=== PATIENT | female | born 1965 | race Caucasian/White ===

== ENCOUNTER 2017-06-26 14:54 | Emergency (ER) | payer OTHER ==
[~2017-06-26] VITALS: Ht 165.1 cm; Wt 86.0 kg
[~2017-06-26 14:54] MED LIST: MECL25CH PO; MOBI7.5T PO
[2017-06-26 14:56] VITALS: BP 134/90; PULSE 80; RESP 12; TEMP 98.5; O2SAT 99
[2017-06-26 16:14] VITALS: BP 136/86; PULSE 72; RESP 16; O2SAT 98
[2017-06-26 16:54] LABS: AUTOMATED NEUTROPHIL # 3.6 TH/MM3 (1.8-7.7); BASOPHIL % 0.6 % (0.0-2.0); EOSINOPHIL # 0.2 TH/MM3 (0-0.4); EOSINOPHIL % 3.1 % (0.0-4.0); HEMATOCRIT 35.9 % (35.0-46.0); HEMOGLOBIN 12.7 GM/DL (11.6-15.3); LYMPHOCYTE # 2.5 TH/MM3 (1.0-4.8); MEAN CELL VOLUME 85.8 FL (80.0-100.0); MEAN CORPUSCULAR HEMOGLOBIN 30.3 PG (27.0-34.0); MEAN CORPUSCULAR HGB CONC 35.3 % (32.0-36.0); MEAN PLATELET VOLUME 9.1 FL (7.0-11.0); MONO % 7.4 % (0.0-8.0); MONOCYTE # 0.5 TH/MM3 (0-0.9); NEUT % 52.9 % (16.0-70.0); PLATELET COUNT 219 TH/MM3 (150-450); RED BLOOD COUNT 4.18 MIL/MM3 (4.00-5.30); RED CELL DISTRIBUTION WIDTH 13.1 % (11.6-17.2); WHITE BLOOD COUNT 6.9 TH/MM3 (4.0-11.0)
--- NOTE | 2017-06-26 16:54 | RADRPT ---
EXAM DATE/TIME: 06/26/2017 16:41 [facility] COMPARISON: No previous studies available for comparison. INDICATIONS : CVA, Dizziness, left eye problems, diaphoresis. RADIATION DOSE: 32.53 CTDIvol (mGy) MEDICAL HISTORY : None SURGICAL HISTORY : None. ENCOUNTER: Initial ACUITY: 2 days PAIN SCALE: 0/10 LOCATION: cranial TECHNIQUE: Multiple contiguous axial images were obtained of the head. Using automated exposure control and adjustment of the mA and/or kV according to patient size, radiation dose was kept as low as reasonably achievable to obtain optimal diagnostic quality images. DICOM format image data is av ailable electronically for review and comparison. FINDINGS: CEREBRUM: The ventricles are normal for age. No evidence of midline shift, mass lesion, hemorrha ge or acute infarction. No extra-axial fluid collections are seen. POSTERIOR FOSSA: The cerebellum and brainstem are intact. The 4th ventricle is midline. The cer ebellopontine angle is unremarkable. EXTRACRANIAL: The visualized portion of the orbits is intact. SKULL: The calvaria is intact. No evidence of skull fracture. CONCLUSION: Negative for central pulmonary emboli Orbits unremarkable Miguel Valadez MD FACR on June 26, 2017 at 16:51 Board Certified Radiologist. This report was verified electronically.
--- NOTE | 2017-06-26 17:01 | PD ---
Physical Exam Narrative I, Dr. Burgess, have reviewed the advance practice practitioner's documentation and am in agreement, met with the patient face to face, made the diagnosis, and the medical decision making was done by me. *My assessment and Findings: Patient is a 52 year old female who comes in after an episode of dizziness and peripheral vision loss. Currently, she says her symptoms have resolved. Exam shows decreased peripheral vision on the left, no other neurologic abnormalities. Data Data Last Documented VS Vital Signs Date Time Temp Pulse Resp B/P (MAP) Pulse Ox O2 Delivery O2 Flow Rate FiO2 06/26/17 21:50 06/26/17 18:25 69 17 99 Room Air 06/26/17 14:56 98.5 Orders Orders Electrocardiogram (06/26/17 16:19) Prothrombin Time / Inr (Pt) (06/26/17 16:19) Act Partial Throm Time (Ptt) (06/26/17 16:19) Complete Blood Count With Diff (06/26/17 16:19) Basic Metabolic Panel (Bmp) (06/26/17 16:19) Drug Screen, Random Urine (06/26/17 16:19) Troponin I (06/26/17 16:19) Urinalysis - C+S If Indicated (06/26/17 16:19) Ct Brain W/O Iv Contrast(Rout) (06/26/17 16:19) Ecg Monitoring (06/26/17 16:19) Iv Access Insert/Monitor (06/26/17 16:19) Blood Glucose (06/26/17 16:19) Mri Brain W/O Contrast (06/26/17 16:59) Sodium Chlor 0.9% 1000 Ml Inj (Ns 1000 M (06/26/17 19:30) Ketorolac Inj (Toradol Inj) (06/26/17 19:30) Diphenhydramine Inj (Benadryl Inj) (06/26/17 19:30) Prochlorperazine Inj (Compazine Inj) (06/26/17 19:30) Ed Discharge Order (06/26/17 20:46) Labs Laboratory Tests Test 06/26/17 16:20 06/26/17 16:35 White Blood Count 6.9 TH/MM3 Red Blood Count 4.18 MIL/MM3 Hemoglobin 12.7 GM/DL Hematocrit 35.9 % Mean Corpuscular Volume 85.8 FL Mean Corpuscular Hemoglobin 30.3 PG Mean Corpuscular Hemoglobin Concent 35.3 % Red Cell Distribution Width 13.1 % Platelet Count 219 TH/MM3 Mean Platelet Volume 9.1 FL Neutrophils (%) (Auto) 52.9 % Lymphocytes (%) (Auto) 36.0 % Monocytes (%) (Auto) 7.4 % Eosinophils (%) (Auto) 3.1 % Basophils (%) (Auto) 0.6 % Neutrophils # (Auto) 3.6 TH/MM3 Lymphocytes # (Auto) 2.5 TH/MM3 Monocytes # (Auto) 0.5 TH/MM3 Eosinophils # (Auto) 0.2 TH/MM3 Basophils # (Auto) 0.0 TH/MM3 CBC Comment DIFF FINAL Differential Comment Prothrombin Time 10.7 SEC Prothromb Time International Ratio 1.1 RATIO Activated Partial Thromboplast Time 36.9 SEC Blood Urea Nitrogen 16 MG/DL Creatinine 0.76 MG/DL Random Glucose 67 MG/DL Calcium Level 8.7 MG/DL Sodium Level 142 MEQ/L Potassium Level 3.9 MEQ/L Chloride Level 110 MEQ/L Carbon Dioxide Level 27.0 MEQ/L Anion Gap 5 MEQ/L Estimat Glomerular Filtration Rate 80 ML/MIN Troponin I 0.02 NG/ML Urine Color YELLOW Urine Turbidity CLEAR Urine pH 6.0 Urine Specific [place] 1.031 Urine Protein TRACE mg/dL Urine Glucose (UA) NEG mg/dL Urine Ketones NEG mg/dL Urine Occult Blood NEG Urine Nitrite NEG Urine Bilirubin NEG Urine Urobilinogen 2.0 MG/DL Urine Leukocyte Esterase NEG Urine WBC 1 /hpf Urine Mucus FEW /lpf Microscopic Urinalysis Comment CATH-CULT NOT IND Urine Opiates Screen NEG Urine Barbiturates Screen NEG Urine Amphetamines Screen NEG Urine Benzodiazepines Screen NEG Urine Cocaine Screen NEG Urine Cannabinoids Screen NEG MDM Supervised Visit with [facility]: Yes Narrative Course CT head performed shows no acute abnormalities. MRI brain shows no acute abnormalities. While in the ED, patient began to have a headache. She has history of migraines. I believe her symptoms may be related to a migraine coming on. Given pain medication. Discharged home to follow up with neurology. Diagnosis Primary Impression: Headache Qualified Codes: R51 - Headache Scripts No Active Prescriptions or Reported Meds Patricia Burgess MD Jun 26, 2017 17:01
[2017-06-26 17:03] LABS: INTERNATIONAL NORMALIZED RATIO 1.1 RATIO; PROTHROMBIN TIME - PATIENT 10.7 SEC (9.8-11.6)
[2017-06-26 17:10] LABS: BILIRUBIN, URINE NEG (NEG); BLOOD, URINE NEG (NEG); GLUCOSE,URINE NEG (NEG); KETONE, URINE NEG (NEG); MUCUS URINE FEW /lpf (OCC); NITRITE,URINE NEG (NEG); URINE COLOR YELLOW (YELLW/STRAW); URINE LEUKOCYTE ESTERASE NEG (NEG)
[2017-06-26 17:20] LABS: CALCIUM 8.7 MG/DL (8.5-10.1); CREATININE 0.76 MG/DL (0.50-1.00)
[2017-06-26 17:25] LABS: TROPONIN I 0.02 NG/ML (0.02-0.05)
--- NOTE | 2017-06-26 17:25 | PD ---
HPI Chief Complaint: Dizziness Time Seen by Provider: 16:07 Travel History International Travel<30 days: No Contact w/Intl Traveler<30days: No Traveled to known affect area: No History of Present Illness HPI 52 year old female presents to the emergency department for evaluation of sudden onset dizziness and peripheral vision loss with the left eye. Patient states the symptoms started approximately two hours ago. She reports the dizziness felt like the room was spinning and she had to hold on to her desk. She reports the dizziness has completely resolved at this time and the episode only last approximately 2 mins. She reports that the peripheral vision loss in her left eye is resolved, however on physical exam it was determined she still has peripheral vision loss. Central vision in bilateral eyes intact. Right peripheral vision intact. She denies any headache, ear pain, nausea or vomiting. She denies any chest pain or shortness of breath, recent fevers or chills. There are no focal neurological deficits at this time. Patient has no major medical history and is otherwise healthy. No daily medications. PFSH Past Medical History Medical History: Denies Significant Hx Diminished Hearing: No Influenza Vaccination: No ?: Not Menopausal: Yes Social History Alcohol Use: Yes (wine occ) Tobacco Use: No Substance Use: No Allergies-Medications (Allergen,Severity, Reaction): Coded Allergies: No Known Allergies (Unverified Adverse Reaction, Unknown, 06/26/17) Reported Meds & Prescriptions Reported Meds & Active Scripts Active No Active Prescriptions or Reported Medications Review of Systems Except as stated in HPI: all other systems reviewed are Neg Physical Exam Narrative GENERAL: Well-nourished, well-developed 52-year-old female in no acute distress. Nontoxic appearing. SKIN: Focused skin assessment warm/dry. HEAD: Atraumatic. Normocephalic. EYES: Pupils equal and round. No scleral icterus. No injection or drainage. Left peripheral vision loss. Bilateral central vision intact. Right peripheral vision intact. VISUAL ACUITY: Left eye: 20/25, Right eye: 20/10 ENT: No nasal bleeding or discharge. Mucous membranes pink and moist. NECK: Trachea midline. No JVD. CARDIOVASCULAR: Regular rate and rhythm. No murmur appreciated. RESPIRATORY: No accessory muscle use. Clear to auscultation. Breath sounds equal bilaterally. GASTROINTESTINAL: Abdomen soft, non-tender, nondistended. Hepatic and splenic margins not palpable. MUSCULOSKELETAL: No obvious deformities. No clubbing. No cyanosis. No edema. NEUROLOGICAL: Awake and alert. No obvious cranial nerve deficits. Motor grossly within normal limits. Normal speech. PSYCHIATRIC: Appropriate mood and affect; insight and judgment normal. Data Data Last Documented VS Vital Signs Date Time Temp Pulse Resp B/P (MAP) Pulse Ox O2 Delivery O2 Flow Rate FiO2 06/26/17 18:25 69 17 152/77 (102) 99 Room Air 06/26/17 14:56 98.5 Orders Orders Electrocardiogram (06/26/17 16:19) Prothrombin Time / Inr (Pt) (06/26/17 16:19) Act Partial Throm Time (Ptt) (06/26/17 16:19) Complete Blood Count With Diff (06/26/17 16:19) Basic Metabolic Panel (Bmp) (06/26/17 16:19) Drug Screen, Random Urine (06/26/17 16:19) Troponin I (06/26/17 16:19) Urinalysis - C+S If Indicated (06/26/17 16:19) Ct Brain W/O Iv Contrast(Rout) (06/26/17 16:19) Ecg Monitoring (06/26/17 16:19) Iv Access Insert/Monitor (06/26/17 16:19) Blood Glucose (06/26/17 16:19) Mri Brain W/O Contrast (06/26/17 16:59) Sodium Chlor 0.9% 1000 Ml Inj (Ns 1000 M (06/26/17 19:30) Ketorolac Inj (Toradol Inj) (06/26/17 19:30) Diphenhydramine Inj (Benadryl Inj) (06/26/17 19:30) Prochlorperazine Inj (Compazine Inj) (06/26/17 19:30) Ed Discharge Order (06/26/17 20:46) Labs Laboratory Tests Test 06/26/17 16:20 06/26/17 16:35 White Blood Count 6.9 TH/MM3 Red Blood Count 4.18 MIL/MM3 Hemoglobin 12.7 GM/DL Hematocrit 35.9 % Mean Corpuscular Volume 85.8 FL Mean Corpuscular Hemoglobin 30.3 PG Mean Corpuscular Hemoglobin Concent 35.3 % Red Cell Distribution Width 13.1 % Platelet Count 219 TH/MM3 Mean Platelet Volume 9.1 FL Neutrophils (%) (Auto) 52.9 % Lymphocytes (%) (Auto) 36.0 % Monocytes (%) (Auto) 7.4 % Eosinophils (%) (Auto) 3.1 % Basophils (%) (Auto) 0.6 % Neutrophils # (Auto) 3.6 TH/MM3 Lymphocytes # (Auto) 2.5 TH/MM3 Monocytes # (Auto) 0.5 TH/MM3 Eosinophils # (Auto) 0.2 TH/MM3 Basophils # (Auto) 0.0 TH/MM3 CBC Comment DIFF FINAL Differential Comment Prothrombin Time 10.7 SEC Prothromb Time International Ratio 1.1 RATIO Activated Partial Thromboplast Time 36.9 SEC Blood Urea Nitrogen 16 MG/DL Creatinine 0.76 MG/DL Random Glucose 67 MG/DL Calcium Level 8.7 MG/DL Sodium Level 142 MEQ/L Potassium Level 3.9 MEQ/L Chloride Level 110 MEQ/L Carbon Dioxide Level 27.0 MEQ/L Anion Gap 5 MEQ/L Estimat Glomerular Filtration Rate 80 ML/MIN Troponin I 0.02 NG/ML Urine Color YELLOW Urine Turbidity CLEAR Urine pH 6.0 Urine Specific [place] 1.031 Urine Protein TRACE mg/dL Urine Glucose (UA) NEG mg/dL Urine Ketones NEG mg/dL Urine Occult Blood NEG Urine Nitrite NEG Urine Bilirubin NEG Urine Urobilinogen 2.0 MG/DL Urine Leukocyte Esterase NEG Urine WBC 1 /hpf Urine Mucus FEW /lpf Microscopic Urinalysis Comment CATH-CULT NOT IND Urine Opiates Screen NEG Urine Barbiturates Screen NEG Urine Amphetamines Screen NEG Urine Benzodiazepines Screen NEG Urine Cocaine Screen NEG Urine Cannabinoids Screen NEG MDM Medical Decision Making Medical Screen Exam Complete: Yes Emergency Medical Condition: Yes Differential Diagnosis Differential diagnoses include but not limited to CVA, TIA, ICH, vertigo, intracranial tumor, cerebellar infarct Narrative Course Patient placed on monitor, IV obtained and blood work sent to lab. CBC, BMP, PT /INR, drug screen, troponin, UA ordered and pending. EKG ordered and pending. Brain CT ordered and pending. CBC is unremarkable BMP resulted the glucose at 67, orange juice given and rechecked. Bedside glucose 116 on recheck. UA is unremarkable Drug screen is negative EKG Brain CT was negative Brain MRI ordered. Shortly after MRI of the brain ordered patient developed 10 out of 10 frontal migraine with photophobia. No nausea associated. Patient remained neurologically intact. Patient given migraine cocktail, 1 L normal saline bolus , 30 mg IV Toradol, 10 mg IV Compazine, 50 mg IV Benadryl MRI of the brain was negative. Patient was fully evaluated for any risk of TIA, CVA. After the migraine cocktail administered patient reassessed and the pain had completely resolved and she was feeling tremendous it better. Patient's vision reassessed and the left peripheral vision is intact this time. Patient is discharged home with instructions to follow-up with her primary care regarding migraine management, powder compounder if symptoms return of peripheral vision loss and given strict instructions to return the emergency Department with any worsening condition or change in mental status. Patient understands reasons to return to the emergency department and states she will. Patient is thankful for care and smiling and waving upon discharge. Diagnosis Primary Impression: Migraine with aura Qualified Codes: G43.109 - Migraine with aura, not intractable, without status migrainosus Referrals: [facility] [employer] Patient Instructions: General Instructions, Migraine Headache (ED) Additional Instructions: Please return to emergency department if your symptoms return or worsen. Follow up with your primary care provider. Follow-up with powder compounder. May take [id number] ibuprofen or Tylenol as needed for headache. Stay hydrated, get enough rest, diet as tolerated. Scripts No Active Prescriptions or Reported Meds Disposition: 01 DISCHARGE HOME Condition: Stable Patricia Hicks Jun 26, 2017 17:25
[2017-06-26 18:25] VITALS: BP 152/77; PULSE 69; RESP 17; O2SAT 99
[2017-06-26] MEDS ORDERED: PROCHLORPERAZINE INJ 10 MG/2 ML VIAL IV PUSH ONE (19:30)
[2017-06-26] MEDS ORDERED: diphenhydrAMINE HCL 50 MG/ML VIAL IV PUSH ONE (19:30)
[2017-06-26] MEDS ORDERED: SODIUM CHLOR 0.9% 1000 ML INJ 1,000 ML IV ONE (19:30)
[2017-06-26] MEDS ORDERED: KETOROLAC TROMETHAMINE 30 MG/ML (IVP) VIAL IV PUSH ONE (19:30)
--- NOTE | 2017-06-26 20:11 | RADRPT ---
EXAM DATE/TIME: 06/26/2017 19:33 [facility] COMPARISON: No previous studies available for comparison. INDICATIONS : CVA. MEDICAL HISTORY : None. SURGICAL HISTORY : Foot. ENCOUNTER: Subsequent ACUITY: 1 day PAIN SCORE: 0/10 LOCATION: cranial TECHNIQUE: Multiplanar, multisequence MRI of the brain was performed without contrast. FINDINGS: CEREBRUM: The ventricles are normal for age. No evidence of midline shift, mass lesion, hemorrhage or acute in farction. No extraaxial fluid collections are seen. The pituitary gland and suprasellar cistern are normal in configuration. WHITE MATTER: No significant signal abnormalities are seen in the white matter. POSTERIOR FOSSA: The cerebellum and brainstem are intact. The 4th ventricle is midline. The cerebellopontine angle is unremarkable. The cerebellar tonsils are normal in position. DIFFUSION IMAGING: No focal areas of restricted diffusion are seen. No evidence of acute infarction. EXTRACRANIAL: The visualized portions of the orbits and paranasal sinuses are unremarkable. CONCLUSION: 1. Negative MRI of the brain without contrast. Yaw Perkins MD on June 26, 2017 at 20:08 Board Certified Radiologist. This report was verified electronically.
--- NOTE | 2017-06-29 10:08 | EKG ---
Date Performed: 06/26/2017 Time Performed: 16:22:20 PTAGE: 52 years EKG: Sinus rhythm LOW QRS VOLTAGE IN PRECORDIAL LEADS BORDERLINE ECG Compared to prior tracing no significant change DOCTOR: Jacob Barillas Interpretating Date/Time 06/29/2017 10:08:17
== END 2017-06-26 21:54 | disposition home or self-care (01) ==
LOC: NEPC 14:54
DX: G43.109 Migraine with aura, not intractable, without status migrainosus (principal)
CPT/HCPCS: 70450; 70551; 80048; 80307; 81001; 84484; 85025; 85610; 85730; 93005; 96374; 96375; 99285; J0780; J1200; J1885; J7030